=== PATIENT | male | born 1955 | race Caucasian/White ===

== ENCOUNTER 2019-08-03 04:38 | Inpatient (IN) | payer MEDICARE, OTHER ==
[2019-08-03] MEDS ORDERED: Hydromorphone 1 mg/ml Ampule IV ONE ×3 (04:45→06:39)
[2019-08-03] MEDS ORDERED: Sodium Chloride 0.9% 1000 ML 1,000 ML IV STA (04:45)
[2019-08-03] MEDS ORDERED: Zofran 4 MG/2 ML VIAL IV ONE (04:45)
[2019-08-03] MEDS ORDERED: Sodium Chloride 0.9% 1000 ML 1,000 ML ONE ×2 (05:04→07:41)
[2019-08-03] MEDS ORDERED: Hydromorphone 1 mg/ml Ampule ONE ×4 (05:04→07:41)
[2019-08-03] MEDS ORDERED: Zofran 4 MG/2 ML VIAL ONE (05:04)
[2019-08-03 05:06] LABS: Absolute Neutrophil Ct (ANC) 13.73 (1.4-6.9); BASOPHIL % 0.1 % (0.0-0.4); Basophil (Absolute #) 0.01 (0-0.4); Eosinophil % 0.1 % (0.00-5.0); Eosinophil (Absolute #) 0.01 (0-0.5); Hemoglobin 14.8 gm/dl (12.5-18.0); Lymphocytes % 6.9 % (24.0-44.0); Mean Cell Volume 90.3 fl (78-100); Mean Corpuscular Hemoglobin 30.4 pg (26-32); Mean Corpuscular Hgb Concent. 33.6 g/dl (32-36); Mean Platelet Volume 9.6 fl (7.5-11.0); Monocyte (Absolute #) 1.05 (0.0-1.3); Monocytes % 6.6 % (0.0-12.0); Neutrophil % 86.3 % (36.0-66.0); Platelet Count 219 K/mm3 (150-450); Red Blood Count 4.87 M/mm3 (4.1-5.6); Red Cell Distribution Width 13.9 % (11.5-14.0); White Blood Count 15.9 K/mm3 (4.0-10.5)
--- NOTE | 2019-08-03 05:12 | ERPHSYRPT ---
- History of Present Illness Time Seen by Provider: 08/03/19 04:55 Historian: patient Exam Limitations: no limitations Patient Subjective Stated Complaint: pt c/o abd pain/vomiting x4 times since yesterday at 1800. Pt denies diarrhea or fever. Triage Nursing Assessment: pt c/o lt lower abd pain, tender on palpation, vomiting. Abd soft with active bs x4 quad, tender on palpation. Pt denies any pain radiating to back, denies diarrhea. Physician History: Patient has nausea, vomiting and LLQ abdominal pain for the past 10 hours. Timing/Duration: hour(s) (10) Activities at Onset: none Quality: stabbing Abdominal Pain Onset Location: LLQ Pain Radiation: no radiation Severity of Pain-Max: severe Severity of Pain-Current: severe Modifying Factors: Improves With: nothing Associated Symptoms: nausea, vomiting (times four), No back, No chest pain, No diaphoresis, No diarrhea, No fever/chills, No fatigue, No headache, No heartburn , No loss of appetite, No neck pain, No rash, No shortness of breath, No syncope , No testicular pain, No weakness Previous symptoms: no prior history, no recent treatment Allergies/Adverse Reactions: No Known Drug Allergies Allergy (Unverified 08/03/19 04:56) Home Medications: Methadone HCl 5 mg PO HS 08/03/19 [History] Metoprolol Tartrate 25 mg [Lopressor 25MG Tab] 25 mg PO HS 08/03/19 [ History] Sertraline HCl 50 mg PO HS 08/03/19 [History] Tizanidine HCl 4 mg [Zanaflex 4 MG] 4 mg PO DAILY 08/03/19 [History] Zolpidem Tartrate 10 mg [Ambien 10 MG] 10 mg PO HS 08/03/19 [History] Hx Tetanus, Diphtheria Vaccination/Date Given: Yes Hx Influenza Vaccination/Date Given: Yes Hx Pneumococcal Vaccination/Date Given: Yes Immunizations Up to Date: Yes - Review of Systems Constitutional: No Fever, No Chills Eyes: No Eye Pain, No Vision Changes Ears, Nose, & Throat: No Mouth Swelling Respiratory: No Cough, No Dyspnea Cardiac: No Chest Pain, No Edema, No Syncope Abdominal/Gastrointestinal: Abdominal Pain, Nausea, Vomiting, No Diarrhea, No Hematemesis, No Hematochezia, No Melena Genitourinary Symptoms: No Dysuria, No Hematuria, No Flank Pain Musculoskeletal: No Back Pain, No Neck Pain Skin: No Rash Neurological: No Dizziness, No Focal Weakness, No Headache, No Parasthesia, No Sensory Changes Psychological: No Symptoms Endocrine: No Symptoms All Other Systems: Reviewed and Negative - Past Medical History Pertinent Past Medical History: Yes Neurological History: No Pertinent History ENT History: No Pertinent History Cardiac History: Other Respiratory History: No Pertinent History Endocrine Medical History: No Pertinent History Musculoskeletal History: Arthritis GI Medical History: No Pertinent History History: No Pertinent History Psycho-Social History: Anxiety, Depression Male Reproductive Disorders: No Pertinent History - Past Surgical History Past Surgical History: Yes Neuro Surgical History: No Pertinent History Cardiac: No Pertinent History Respiratory: No Pertinent History Gastrointestinal: No Pertinent History Genitourinary: No Pertinent History Musculoskeletal: Orthopedic Surgery, Other Male Surgical History: No Pertinent History Other Surgical History: elbow repaired, back surgeries with implant - Social History Smoking Status: Never smoker Exposure to second hand smoke: No Drug Use: none Patient Lives Alone: No - Nursing Vital Signs Nursing Vital Signs: Initial Vital Signs Temperature 98.1 F 08/03/19 04:43 Pulse Rate 72 08/03/19 04:43 Respiratory Rate 18 08/03/19 04:43 Blood Pressure 148/72 08/03/19 04:43 O2 Sat by Pulse Oximetry 98 08/03/19 04:43 Pain Scale Pain Intensity 10 - Physical Exam General Appearance: no apparent distress, alert Eye Exam: PERRL/EOMI, eyes nml inspection Ears, Nose, Throat Exam: normal ENT inspection, TMs normal, pharynx normal, moist mucous membranes Neck Exam: normal inspection, non-tender, supple, full range of motion, No meningismus, No Brudzinski, No Kernig's Respiratory Exam: normal breath sounds, lungs clear, airway intact, No respiratory distress, No diminished breath sounds, No accessory muscle use, No crackles/rales, No rhonchi, No wheezing Cardiovascular Exam: regular rate/rhythm, normal heart sounds, normal peripheral pulses, capillary refill <2 sec Gastrointestinal/Abdomen Exam: soft, normal bowel sounds, No tenderness, No distention, No mass, No guarding, No rebound Back Exam: normal inspection, normal range of motion, No CVA tenderness, No vertebral tenderness Extremity Exam: normal inspection, normal range of motion, pelvis stable Neurologic Exam: alert, oriented x 3, cooperative, 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 Smaller hernia with no signs of instruction or mucosal thickening. No evidence of appendicitis. No free air. No significant fluid collection. No abdominal aortic aneurysm. Spinal cord simulator is in place. No acute fracture. Could consider further evaluation with CT Urography to exclude an underlying obstructive urothelial lesion) Ordered Tests: Active Orders 24 hr Category Date Time Status Dressing Care DAILY Care 08/03/19 04:47 Active IV Insertion STAT Care 08/03/19 04:45 Active ABDOMEN AND PELVIS W/0 CONTRAS [CT] Stat Exams 08/03/19 04:45 Taken AMYLASE Stat Lab 08/03/19 04:50 Completed CBC W DIFF Stat Lab 08/03/19 04:50 Completed CMP Stat Lab 08/03/19 04:50 Completed LIPASE Stat Lab 08/03/19 04:50 Completed Lactic Acid Stat Lab 08/03/19 05:00 Results PROTIME WITH INR Stat Lab 08/03/19 04:50 Completed UA W/RFX UR CULTURE Stat Lab 08/03/19 04:45 Uncollected Medication Summary Discontinued Medications Generic Name Dose Route Start Last Admin Trade Name Freq PRN Reason Stop Dose Admin Hydromorphone HCl 1 mg 08/03/19 04:45 08/03/19 05:10 Hydromorphone 1 Mg/Ml Ampule IV 08/03/19 04:46 1 mg STAT ONE Administration Hydromorphone HCl Confirm 08/03/19 05:04 Hydromorphone 1 Mg/Ml Ampule Administered 08/03/19 05:05 Dose 1 mg .ROUTE .STK-MED ONE Hydromorphone HCl 1 mg 08/03/19 06:06 08/03/19 06:11 Hydromorphone 1 Mg/Ml Ampule IV 08/03/19 06:07 1 mg STAT ONE Administration Hydromorphone HCl Confirm 08/03/19 06:09 Hydromorphone 1 Mg/Ml Ampule Administered 08/03/19 06:10 Dose 1 mg .ROUTE .STK-MED ONE Hydromorphone HCl 1 mg 08/03/19 06:39 Hydromorphone 1 Mg/Ml Ampule IV 08/03/19 06:40 STAT ONE Sodium Chloride 1,000 mls @ 999 mls/hr 08/03/19 04:45 08/03/19 05:10 Sodium Chloride 0.9% 1000 Ml IV 08/03/19 05:45 999 mls/hr .Q1H1M STA Administration Sodium Chloride Confirm 08/03/19 05:04 Sodium Chloride 0.9% 1000 Ml Administered 08/03/19 05:05 Dose 1,000 mls @ ud .ROUTE .STK-MED ONE Ondansetron HCl 4 mg 08/03/19 04:45 08/03/19 05:11 Zofran 4 Mg/2 Ml Vial IV 08/03/19 04:46 4 mg STAT ONE Administration Ondansetron HCl Confirm 08/03/19 05:04 Zofran 4 Mg/2 Ml Vial Administered 08/03/19 05:05 Dose 4 mg .ROUTE .STK-MED ONE Lab/Rad Data: Laboratory Result Diagrams 08/03/19 04:50 08/03/19 04:50 Laboratory Results 08/03/19 08/03/19 08/03/19 Range/Units 05:00 04:50 04:50 WBC (4.0-10.5) K/mm3 RBC (4.1-5.6) M/mm3 Hgb (12.5-18.0) gm/dl Hct (42-50) % MCV (78-100) fl MCH (26-32) pg MCHC (32-36) g/dl RDW (11.5-14.0) % Plt Count (150-450) K/mm3 MPV (7.5-11.0) fl Gran % (36.0-66.0) % Eos # (Auto) (0-0.5) Absolute Lymphs (auto) (1.0-4.6) Absolute Monos (auto) (0.0-1.3) Lymphocytes % (24.0-44.0) % Monocytes % (0.0-12.0) % Eosinophils % (0.00-5.0) % Basophils % (0.0-0.4) % Absolute Granulocytes (1.4-6.9) Basophils # (0-0.4) PT 14.3 H (8.83-12.87) SECONDS INR 1.26 (0.8-3.0) Sodium 138 (137-145) mmol/L Potassium 4.3 (3.5-5.1) mmol/L Chloride 96 L (98-107) mmol/L Carbon Dioxide 31 H (22-30) mmol/L Anion Gap 15.3 H (5-15) MEQ/L BUN 24 H (9-20) mg/dL Creatinine 1.51 H (0.66-1.25) mg/dL Estimated GFR 49.5 ML/MIN Glucose 164 H (74-106) mg/dL Lactic Acid 2.0 (0.4-2.0) Calcium 10.1 (8.4-10.2) mg/dL Total Bilirubin 0.80 (0.2-1.3) mg/dL AST 36 (17-59) U/L ALT 31 (0-50) U/L Alkaline Phosphatase 87 (38-126) U/L Serum Total Protein 8.4 H (6.3-8.2) g/dL Albumin 5.0 (3.5-5.0) g/dL Amylase 129 H (30-110) U/L Lipase 124 (23-300) U/L 08/03/19 Range/Units 04:50 WBC 15.9 H (4.0-10.5) K/mm3 RBC 4.87 (4.1-5.6) M/mm3 Hgb 14.8 (12.5-18.0) gm/dl Hct 44.0 (42-50) % MCV 90.3 (78-100) fl MCH 30.4 (26-32) pg MCHC 33.6 (32-36) g/dl RDW 13.9 (11.5-14.0) % Plt Count 219 (150-450) K/mm3 MPV 9.6 (7.5-11.0) fl Gran % 86.3 H (36.0-66.0) % Eos # (Auto) 0.01 (0-0.5) Absolute Lymphs (auto) 1.10 (1.0-4.6) Absolute Monos (auto) 1.05 (0.0-1.3) Lymphocytes % 6.9 L (24.0-44.0) % Monocytes % 6.6 (0.0-12.0) % Eosinophils % 0.1 (0.00-5.0) % Basophils % 0.1 (0.0-0.4) % Absolute Granulocytes 13.73 H (1.4-6.9) Basophils # 0.01 (0-0.4) PT (8.83-12.87) SECONDS INR (0.8-3.0) Sodium (137-145) mmol/L Potassium (3.5-5.1) mmol/L Chloride (98-107) mmol/L Carbon Dioxide (22-30) mmol/L Anion Gap (5-15) MEQ/L BUN (9-20) mg/dL Creatinine (0.66-1.25) mg/dL Estimated GFR ML/MIN Glucose (74-106) mg/dL Lactic Acid (0.4-2.0) Calcium (8.4-10.2) mg/dL Total Bilirubin (0.2-1.3) mg/dL AST (17-59) U/L ALT (0-50) U/L Alkaline Phosphatase (38-126) U/L Serum Total Protein (6.3-8.2) g/dL Albumin (3.5-5.0) g/dL Amylase (30-110) U/L Lipase (23-300) U/L - Progress Progress: improved Progress Note: 08/03/19 06:38 Patient has two rounds of IV Dilaudid with some improvement of pain, but it has returned. Patient will be given 1mg of Dilaudid and consideration for admission for pain control Discussed with .: Mabel (@06:40, discussed the patient with Dr Castro, Hospitalist at [facility]. Dr Castro accepted the patient for observation.) Counseled pt/family regarding: lab results, diagnosis, need for follow-up, rad results - Departure Departure Disposition: Observation (to [facility] to Dr Castro) Clinical Impression: LLQ abdominal pain, Hydronephrosis of left kidney, Acute renal insufficiency Blister of back without infection Qualifiers: Encounter type: initial encounter Laterality: left Qualified Code(s): S20.422A - Blister (nonthermal) of left back wall of thorax, initial encounter Condition: Good Critical Care Time: No Referrals: MONTY MORGAN [Primary Care Provider] -
[2019-08-03 05:13] LABS: INR 1.26 (0.8-3.0); PROTIME 14.3 SECONDS (8.83-12.87)
[2019-08-03 05:17] LABS: ANION GAP 15.3 MEQ/L (5-15); BILIRUBIN,TOTAL 0.8 mg/dL (0.2-1.3); Calcium 10.1 mg/dL (8.4-10.2); Creatinine 1 1.51 mg/dL (0.66-1.25); Potassium 4.3 mmol/L (3.5-5.1); Total Protein 8.4 g/dL (6.3-8.2)
[2019-08-03] MEDS ORDERED: DILAUDID 2 MG INJECTION IV PRN (06:46)
[2019-08-03] MEDS: Sodium Chloride 0.9% 1000 ML 1,000 ML IV SCH ×4 (07:43→22:33)
--- NOTE | 2019-08-03 09:22 | HP ---
CHIEF COMPLAINT: Severe left lower quadrant abdominal pain. HISTORY OF PRESENT ILLNESS: The patient is a 64 year-old white male patient who presented to the emergency room having had pain since 1800 hours last evening. He reports he had a salad afterwards his abdomen became quite painful and reports that the pain was the worst he had in his life and he has implanted pain nerve stimulator and takes methadone from Dr. Vazquez for his back pain. The patient's evaluation included CT scan which showed hydronephrosis and stranding on the left ureteral system but no stone was noted. The patient denies any dysuria. He had no nausea or vomiting prior to this time. PAST MEDICAL/SURGICAL HISTORY: Significant for low back pain problems with a nerve stimulator implanted. HOME MEDICATIONS: Methadone 5 mg at night, metoprolol 25 mg at night, Sertraline 50 mg at night, Zanaflex 4 mg daily and Ambien 10 mg at night. ALLERGIES: NKDA. PHYSICAL EXAMINATION: His vital signs on admission showed temperature 98.1F, pulse 72, respiratory rate 18, blood pressure 148/72. O2 saturation 98%. HEENT: Normocephalic, atraumatic. Pupils equal round reactive to light. Extraocular movements intact. Oropharynx is pink and moist. NECK: Supple without lymphadenopathy, thyromegaly or JVD. CHEST: Clear to auscultation. HEART: Regular rate and rhythm. ABDOMEN: Soft, tender in the left upper quadrant. No palpable masses. EXTREMITIES: Without cyanosis, clubbing or edema. NEUROLOGIC: The patient is alert and oriented x3. When asked about his pain level he reports it as 8 out of 10 but my observation the patient appeared to be in distress whatsoever and he is ordering a full breakfast. LAB DATA AND TESTS: He had laboratory studies otherwise show international normalized ratio 1.26. Sugar 164, BUN 24, creatinine 1.51. Electrolytes were essentially normal. Liver enzymes were normal. Amylase was slightly elevated at 129. His white count is 15,900, hemoglobin 14.8, PLT count 219,000. The patient apparently recently been on doxycycline 100 mg b.i.d. which he recently finished for what apparently was upper respiratory tract infection problem. ASSESSMENT: A patient with left hydronephrosis, possible passed kidney stone. No obstructive tone was noted at this time. The patient has yet to give us a urine sample. We will check UA, culture and sensitivity for possibility of urinary tract infection and possible pyelonephritis. Otherwise the patient was given his methadone for pain control and he has been increased on his IV fluids to 200 cc/hour to help flush the kidneys. We may end up using antibiotic depending on what we see on the urine report.
--- NOTE | 2019-08-03 09:26 | XRAY ---
Indication: Left lower quadrant pain with nausea and vomiting. Multiple contiguous axial images obtained through the abdomen and pelvis without contrast as ordered. Comparison: August 06, 2009. Lung bases again demonstrates right base fibrosis/scarring and tiny right middle lobe calcified granuloma. No infiltrate or effusion. Heart is not enlarged. New small hiatal hernia. There is again left lower back spinal stimulator device with leads producing beam artifact. Noncontrasted stomach and bowel loops appear nonobstructed. Normal appendix. There is moderate fecal debris in the ascending and lesser degree transverse colon. No free fluid/air. Left kidney is now moderately hydronephrotic to the level of the UPJ without radiopaque calculus. Mild perinephric stranding consistent with obstructive uropathy but no perinephric fluid. Markedly distended urinary bladder, either outlet obstruction vs neurogenic bladder. Again mild diffuse fatty liver. Remaining liver, gallbladder, pancreas, spleen, adrenal glands, right kidney, both ureters, and bladder appear unremarkable for noncontrast exam. Osseous structures intact again with mild degenerative changes throughout the spine, worsened at the lumbosacral junction. Impression: 1. New hydronephrotic left kidney to the level of the UPJ with perinephric stranding. No radiopaque calculus. CT urogram or retrograde pyelogram may yield further information. 2. New small hiatal hernia and mild fecal stasis. 3. New markedly distended urinary bladder. Rule out outlet obstruction vs neurogenic bladder. 4. Again incidental fatty liver. Comment: Preliminary interpretation was made by C. No critical discrepancy.
[2019-08-03 09:58] LABS: Appearance CLEAR (CLEAR); Bacteria RARE /HPF (NEGATIVE); Bilirubin NEGATIVE (NEGATIVE); Blood SMALL Ery/ul (0-5); Glucose NEGATIVE (NEGATIVE); Ketones NEGATIVE (NEGATIVE); Leukocyte Esterase NEGATIVE (NEGATIVE); Mucus SLIGHT /HPF (NEGATIVE); Nitrite NEGATIVE (NEGATIVE); Protein,Urine Dip NEGATIVE (Negative); Specific Gravity 1.015 (1.005-1.025); Urobilinogen NEGATIVE mg/dL (0-1); WBC 0-2 /HPF (0-5)
[2019-08-03] MEDS: Pepcid 20 MG PO SCH ×2 (10:07→22:23)
[2019-08-03] MEDS: Flomax 0.4 MG PO SCH (10:07)
[2019-08-03] MEDS: ENOXAPARIN SODIUM SQ SCH (10:07)
[2019-08-03] MEDS ORDERED: DOLOPHINE 10MG Tablet PO ONE (11:00)
[2019-08-03] MEDS: Zofran 4 MG/2 ML VIAL IV PRN ×2 (13:45→19:53)
[2019-08-03] MEDS: Phenergan 25 MG INJ IV PRN ×2 (16:41→22:23)
[2019-08-03 16:44] LABS: Calcium 8.6 mg/dL (8.4-10.2); Creatinine 1 1.59 mg/dL (0.66-1.25); Potassium 4.1 mmol/L (3.5-5.1)
[2019-08-03] MEDS ORDERED: METHADONE HCL 5 MG PO SCH (22:00)
[2019-08-03] MEDS: Lopressor 25MG Tab PO SCH (22:22)
[2019-08-03] MEDS: DOLOPHINE 10MG Tablet PO SCH (22:22)
[2019-08-03] MEDS: ZOLOFT 50 MG TABLET PO SCH (22:22)
[2019-08-03] MEDS: Zanaflex 4 MG PO SCH (22:23)
[2019-08-03] MEDS: Ambien 10 MG PO SCH (22:23)
[2019-08-04] MEDS: Phenergan 25 MG INJ IV PRN (04:17)
[2019-08-04] MEDS: Pepcid 20 MG PO SCH ×2 (09:46→21:06)
[2019-08-04] MEDS: Flomax 0.4 MG PO SCH (09:46)
[2019-08-04] MEDS: DILAUDID 2 MG INJECTION IV PRN ×3 (09:47→21:01)
[2019-08-04] MEDS: Sodium Chloride 0.9% 1000 ML 1,000 ML IV SCH ×3 (09:47→21:15)
[2019-08-04] MEDS: ENOXAPARIN SODIUM SQ SCH (09:47)
[2019-08-04 10:08] LABS: ALBUMIN 3.6 g/dL (3.5-5.0); ANION GAP 9.3 MEQ/L (5-15); BILIRUBIN,TOTAL 0.7 mg/dL (0.2-1.3); Calcium 8.2 mg/dL (8.4-10.2); Creatinine 1 1.99 mg/dL (0.66-1.25); Potassium 4.6 mmol/L (3.5-5.1); Total Protein 6.3 g/dL (6.3-8.2)
[2019-08-04] MEDS: Zofran 4 MG/2 ML VIAL IV PRN (14:54)
[2019-08-04] MEDS: TYLENOL 325 MG PO PRN (18:04)
[2019-08-04] MEDS: ZOLOFT 50 MG TABLET PO SCH (21:05)
[2019-08-04] MEDS: Zanaflex 4 MG PO SCH (21:06)
[2019-08-04] MEDS: Lopressor 25MG Tab PO SCH (21:06)
[2019-08-04] MEDS: DOLOPHINE 10MG Tablet PO SCH (21:06)
[2019-08-04] MEDS: Ambien 10 MG PO SCH (21:06)
[2019-08-05] MEDS: Sodium Chloride 0.9% 1000 ML 1,000 ML IV SCH ×3 (03:00→07:43)
[2019-08-05] MEDS: DILAUDID 2 MG INJECTION IV PRN ×5 (04:43→17:38)
[2019-08-05 05:34] LABS: Hematocrit 37.3 % (42-50); Mean Cell Volume 94.7 fl (78-100); Mean Corpuscular Hemoglobin 30.5 pg (26-32); Mean Corpuscular Hgb Concent. 32.2 g/dl (32-36); Mean Platelet Volume 9.9 fl (7.5-11.0); Platelet Count 154 K/mm3 (150-450); Red Blood Count 3.94 M/mm3 (4.1-5.6); Red Cell Distribution Width 14.5 % (11.5-14.0); White Blood Count 12.6 K/mm3 (4.0-10.5)
[2019-08-05 05:40] LABS: ALBUMIN 3.5 g/dL (3.5-5.0); ANION GAP 11.3 MEQ/L (5-15); BILIRUBIN,TOTAL 1.4 mg/dL (0.2-1.3); Calcium 7.8 mg/dL (8.4-10.2); Creatinine 1 1.67 mg/dL (0.66-1.25); Potassium 4.1 mmol/L (3.5-5.1); Total Protein 6.4 g/dL (6.3-8.2)
[2019-08-05] MEDS ORDERED: Cardizem IV 50 MG/10 ML IV ONE (06:59)
[2019-08-05] MEDS ORDERED: CARDIZEM DRIP 100 MG/100 ML D5W 100 ML IV PRN (07:05)
[2019-08-05 07:07] LABS: A-aADO2 206; ABG POTASSIUM 4.5 (3.5-5.1); ABG SITE lr; ARTERIAL BLD GAS O2 SATURATION 85.7 % (95-100); ARTERIAL BLOOD GAS BASE EXCESS -2.2 (-2.0-2.0); ARTERIAL BLOOD GAS FIO2 44 %; ARTERIAL BLOOD GAS PCO2 44 mmHg (35-45); ARTERIAL BLOOD GAS PO2 53 mmHg (75-100); ARTERIAL BLOOD GAS pH 7.34 (7.35-7.45); CARBOXYHEMOGLOBIN 1.4 % THgb (0.0-6.9); HCO3- 23.7 (22-28); HGB O2 SAT 83.9 g/dF (94-100); Methhemoglobin 0.8 % (1.4-1.5)
[2019-08-05 07:08] LABS: ALLEN TEST OK? yes
--- NOTE | 2019-08-05 08:37 | XRAY ---
Indication: Arrhythmia. Comparison: None Portable chest demonstrates cardiomegaly, mild pulmonary edema, and small bibasilar effusions right greater than left favoring cardiac decompensation. Superimposed pneumonia not completely excluded. Bony thorax intact with spinal stimulator lead terminating T7.
[2019-08-05] MEDS ORDERED: CEPACOL SORE THROAT LOZENGE PO PRN (09:00)
[2019-08-05] MEDS: Flomax 0.4 MG PO SCH (09:12)
[2019-08-05] MEDS: Pepcid 20 MG PO SCH (09:12)
[2019-08-05] MEDS: ENOXAPARIN SODIUM SQ SCH (09:12)
--- NOTE | 2019-08-05 09:22 | XRAY ---
Indication: Left lower quadrant/flank pain. Multiple contiguous axial images obtained through the abdomen and pelvis without contrast using renal stone protocol. Comparison: August 03, 2019. Lung bases demonstrates new bibasilar consolidating airspace opacities and small bibasilar effusions. Rule out aspiration pneumonia. Heart is not enlarged. Stable small hiatal hernia. Again no radiopaque calculus in either system. Left kidney demonstrates worsening marked hydronephrosis and increasing perinephric stranding with new tiny perinephric fluid worrisome for high-grade UPJ obstruction. Left mid to proximal ureter demonstrates new stranding favoring ureteritis. Urinary bladder again appears markedly distended, either outlet obstruction versus neurogenic bladder. New tiny perihepatic, left colic gutter, and bilateral lower quadrant free fluid. No walled off fluid collection or free air. Noncontrasted stomach and bowel loops remain nonobstructed with mild fecal debris predominantly in the right hemicolon. Normal appendix. Stable fatty hepatomegaly, minimal aortoiliac calcifications, and left lower back spinal stimulator device with leads. Remaining liver, gallbladder, pancreas, spleen, adrenal glands, right kidney, right ureter, and bladder appear unremarkable for noncontrast exam. Impression: 1. Again high-grade left UPJ obstruction with marked worsening left hydronephrosis, increasing perinephric stranding, and new perinephric fluid. New left ureteritis. No radiopaque calculus in either system. 2. New perihepatic and bilateral lower quadrant free fluid. 3. New consolidating airspace opacities and small effusions in both lung bases. Rule out aspiration pneumonia. 4. Stable markedly distended urinary bladder concerning for outlet objection versus neurogenic bladder. 5. Stable small hiatal hernia and fatty hepatomegaly.
[2019-08-05] MEDS: TYLENOL 325 MG PO PRN (10:10)
[2019-08-05 11:19] LABS: Appearance CLEAR (CLEAR); Bilirubin NEGATIVE (NEGATIVE); Blood NEGATIVE Ery/ul (0-5); Glucose NEGATIVE (NEGATIVE); Ketones TRACE (NEGATIVE); Leukocyte Esterase NEGATIVE (NEGATIVE); Mucus SLIGHT /HPF (NEGATIVE); Nitrite NEGATIVE (NEGATIVE); Protein,Urine Dip NEGATIVE (Negative); Specific Gravity 1.017 (1.005-1.025); Urobilinogen NEGATIVE mg/dL (0-1)
[2019-08-05] MEDS ORDERED: Lasix 20 MG/2 ML IV ONE (11:20)
[2019-08-05] MEDS: Levofloxacin 500MG/100ML D5W 500 MG/100 ML BAG IV SCH (11:22)
[2019-08-05] MEDS: Lopressor 25MG Tab PO SCH (15:11)
[2019-08-05] MEDS: Zofran 4 MG/2 ML VIAL IV PRN (17:38)
[2019-08-06 06:50] LABS: Risk Ratio 3.5
[2019-08-06] MEDS: ENOXAPARIN SODIUM SQ SCH (08:11)
[2019-08-06] MEDS: Levofloxacin 500MG/100ML D5W 500 MG/100 ML BAG IV SCH (08:12)
[2019-08-06] MEDS: Zofran 4 MG/2 ML VIAL IV PRN ×2 (08:12→16:04)
[2019-08-06] MEDS: Cardizem CD 180 MG PO SCH (08:12)
[2019-08-06] MEDS: NORCO 5/325 MG PO PRN ×3 (08:12→16:43)
[2019-08-06] MEDS: Lopressor 25MG Tab PO SCH ×2 (08:12→21:41)
[2019-08-06] MEDS: ECOTRIN 81 MG PO SCH (08:12)
[2019-08-06] MEDS: Flomax 0.4 MG PO SCH (08:14)
[2019-08-06 08:15] LABS: Hematocrit 36.1 % (42-50); Hemoglobin 11.5 gm/dl (12.5-18.0); Mean Cell Volume 94.8 fl (78-100); Mean Corpuscular Hemoglobin 30.2 pg (26-32); Mean Corpuscular Hgb Concent. 31.9 g/dl (32-36); Mean Platelet Volume 10.7 fl (7.5-11.0); Platelet Count 157 K/mm3 (150-450); Red Blood Count 3.81 M/mm3 (4.1-5.6); Red Cell Distribution Width 14.3 % (11.5-14.0); White Blood Count 11.6 K/mm3 (4.0-10.5)
[2019-08-06] MEDS: Pepcid 20 MG PO SCH ×2 (08:16→21:42)
[2019-08-06 08:26] LABS: ALBUMIN 3.4 g/dL (3.5-5.0); ANION GAP 11.8 MEQ/L (5-15); BILIRUBIN,TOTAL 0.9 mg/dL (0.2-1.3); Calcium 7.6 mg/dL (8.4-10.2); Creatinine 1 1.43 mg/dL (0.66-1.25); Potassium 4.1 mmol/L (3.5-5.1); Total Protein 6.3 g/dL (6.3-8.2)
[2019-08-06 09:13] LABS: INFLUENZA A NEGATIVE (NEGATIVE); INFLUENZA B NEGATIVE (NEGATIVE); RESPIRATORY SYNCTIAL VIRUS NEGATIVE (Negative)
[2019-08-06] MEDS ORDERED: Lasix 40 MG/4 ML IV ONE (10:00)
[2019-08-06] MEDS ORDERED: Lasix 20 MG/2 ML IV ONE (10:42)
[2019-08-06] MEDS: TYLENOL 325 MG PO PRN (20:38)
[2019-08-06] MEDS: DOLOPHINE 10MG Tablet PO SCH (21:41)
[2019-08-06] MEDS: Zanaflex 4 MG PO SCH (21:42)
[2019-08-06] MEDS: ZOLOFT 50 MG TABLET PO SCH (21:42)
[2019-08-06] MEDS: Ambien 10 MG PO SCH (21:43)
[2019-08-07 04:59] LABS: Hematocrit 37.7 % (42-50); Hemoglobin 12.3 gm/dl (12.5-18.0); Mean Cell Volume 93.1 fl (78-100); Mean Corpuscular Hemoglobin 30.4 pg (26-32); Mean Corpuscular Hgb Concent. 32.6 g/dl (32-36); Mean Platelet Volume 10.4 fl (7.5-11.0); Platelet Count 162 K/mm3 (150-450); Red Blood Count 4.05 M/mm3 (4.1-5.6); White Blood Count 9.5 K/mm3 (4.0-10.5)
[2019-08-07 05:12] LABS: ALBUMIN 3.4 g/dL (3.5-5.0); ALKALINE PHOSPHATASE 88 U/L (38-126); ANION GAP 9.6 MEQ/L (5-15); BLOOD UREA NITROGEN 25 mg/dL (9-20); CHLORIDE 100 mmol/L (98-107); Calcium 8.2 mg/dL (8.4-10.2); Carbon Dioxide 32 mmol/L (22-30); Creatinine 1 1.41 mg/dL (0.66-1.25); Glucose 108 mg/dL (74-106); Potassium 3.8 mmol/L (3.5-5.1); SGOT/AST 49 U/L (17-59); SGPT/ALT 90 U/L (0-50); SODIUM 138 mmol/L (137-145); Total Protein 6.4 g/dL (6.3-8.2)
[2019-08-07 05:14] LABS: TROPONIN < 0.012 ng/mL (0.000-0.034)
[2019-08-07 05:26] LABS: Eosinophil 1 % (0.00-3.0); Lymphocytes 11 % (24-44); Monocyte 7 % (0.0-12.0); Neutrophils 81 % (36.-66.); Platelet Estimate NORMAL (NORMAL); Polychromasia RARE; Total Cells Counted 100
[2019-08-07] MEDS: TYLENOL 325 MG PO PRN (08:07)
[2019-08-07 08:35] VITALS: BP 133/65; PULSE 84; O2SAT 90
--- NOTE | 2019-08-07 09:47 | PCM.DS ---
Discharge Summary Date of Admission: 08/05/19 07:49 Date of Discharge: 08/07/2019 Admitting Physician: FLORINA BRADEN Consults: Consults on Case 08/05/19 08:55 Consult Cardiology ROUTINE Primary Care Provider: MONTY MORGAN Allergies Allergies No Known Drug Allergies Allergy (Unverified 08/03/19 04:56) Hospital Summary - Hospital Course Hospital Course: Pt. admitted for suspected recently passed kidney stone noting hydronephrosis, no significant blood in urine. Pt. was aggressively hydrated to improve kidney flow and flush kidneys. Pt. had repeat CT of abdomen on showing worsening hydronephrosis on the left, fluid in the gutters, worsening of perinephric stranding and perihepatic fluid, and new infiltrate in the lungs with small bilateral effusion. Baxter placed to for bladder distension/outlet obstruction with good results as well as iv abx. Pt. yesterday began having increasing sob and started requiring sisi at 30% to maintain oxygen levels above 90%, this am without oxygen noted to have saturation of 84% and slow to respond to improve to 93-96% with sisi mask. WBC, vitals and labs remain stable. It is felt this am that the patient will have a prolonged hospital course with out stent placement in the left uvj for his uncertain etiology of this high grade obstruction. Pt. will be transferred to [facility] for stent placement to shorten his hospital course. Pt. voices understanding of reasons and plan and agrees with questions answered at the bedside. - Vitals & Intake/Output Vital Signs: Vital Signs Temperature 98.8 F 08/07/19 08:00 Pulse Rate 84 08/07/19 08:00 Respiratory Rate 14 08/07/19 08:00 Blood Pressure 133/65 08/07/19 08:00 O2 Sat by Pulse Oximetry 90 L 08/07/19 08:00 Oxygen-Last Documented O2 Percentage 4 Liters = 36% Intake & Output: Intake & Output 08/04/19 08/05/19 08/06/19 08/07/19 11:59 11:59 11:59 11:59 Intake Total 5725 5088 3232 1500 Output Total 300 2050 1300 4950 Balance 5425 3038 1932 -3450 Weight 102.7 kg - Lab Result Diagrams: 08/07/19 04:56 08/07/19 04:56 Lab Results-Last 24 Hrs: Lab Results-Last 24 Hours 08/07/19 08/07/19 Range/Units 04:56 04:56 WBC 9.5 (4.0-10.5) K/mm3 RBC 4.05 L (4.1-5.6) M/mm3 Hgb 12.3 L (12.5-18.0) gm/dl Hct 37.7 L (42-50) % MCV 93.1 (78-100) fl MCH 30.4 (26-32) pg MCHC 32.6 (32-36) g/dl RDW 14.0 (11.5-14.0) % Plt Count 162 (150-450) K/mm3 MPV 10.4 (7.5-11.0) fl Segmented Neutrophils 81 H (36.-66.) % Lymphocytes (Manual) 11 L (24-44) % Monocytes (Manual) 7 (0.0-12.0) % Eosinophils (Manual) 1 (0.00-3.0) % Platelet Estimate NORMAL (NORMAL) RBC Morphology ABNORMAL Polychromasia RARE Sodium 138 (137-145) mmol/L Potassium 3.8 (3.5-5.1) mmol/L Chloride 100 (98-107) mmol/L Carbon Dioxide 32 H (22-30) mmol/L Anion Gap 9.6 (5-15) MEQ/L BUN 25 H (9-20) mg/dL Creatinine 1.41 H (0.66-1.25) mg/dL Estimated GFR 53.6 ML/MIN Glucose 108 H (74-106) mg/dL Calcium 8.2 L (8.4-10.2) mg/dL Total Bilirubin 0.90 (0.2-1.3) mg/dL AST 49 (17-59) U/L ALT 90 H (0-50) U/L Alkaline Phosphatase 88 (38-126) U/L Troponin I < 0.012 (0.000-0.034) ng/mL Serum Total Protein 6.4 (6.3-8.2) g/dL Albumin 3.4 L (3.5-5.0) g/dL Micro Results-Entire Visit: Microbiology 08/05/19 11:10 Blood Culture - Preliminary Blood NO GROWTH TO DATE 08/05/19 11:05 Blood Culture - Preliminary Blood NO GROWTH TO DATE 08/05/19 11:20 Urine Culture - Final Urine, Indwelling Catheter NO GROWTH - Radiology Exams Ordered Rad Exams-Entire Visit: Radiology Procedures Category Date Time Status ECHO W/2D AND DOPPLER [US] Routine Exams 08/06/19 08:41 Taken - Procedures and Test Procedures and Tests throughout Hospitalization: Therapy Orders & Screens 08/03/19 06:44 EKG Comment: 08/05/19 07:29 Oxygen Oxymask LPM 15% Comment: Diagnosis: LLQ PAIN 08/05/19 07:30 EKG STAT Comment: Diagnosis: LLQ PAIN Discharge Exam General Appearance: no apparent distress, alert Neurologic Exam: alert, cooperative Eye Exam: EOMI Ears, Nose, Throat Exam: normal ENT inspection Neck Exam: normal inspection, non-tender Respiratory Exam: chest tenderness, diminished breath sounds Cardiovascular Exam: regular rate/rhythm, normal heart sounds, normal peripheral pulses Gastrointestinal/Abdomen Exam: soft, normal bowel sounds, No tenderness, No distention, No mass, No guarding Male Genitalia Exam: deferred Rectal Exam: deferred Extremity Exam: normal inspection Skin Exam: normal color, warm, dry, rash Final Diagnosis/Problem List - Final Discharge Diagnosis/Problem (1) Acute renal insufficiency Current Visit: Yes Status: Acute Code(s): N28.9 - DISORDER OF KIDNEY AND URETER, UNSPECIFIED (2) Hydronephrosis of left kidney Current Visit: Yes Status: Acute Code(s): N13.30 - UNSPECIFIED HYDRONEPHROSIS (3) LLQ abdominal pain Current Visit: Yes Status: Acute Code(s): R10.32 - LEFT LOWER QUADRANT PAIN - Discharge Discharge Date: 08/07/19 [facility] Condition: Stable Prescriptions: No Action Zolpidem Tartrate 10 mg [Ambien 10 MG] 10 mg PO HS Tizanidine HCl 4 mg [Zanaflex 4 MG] 4 mg PO HS Sertraline HCl 50 mg PO HS Metoprolol Tartrate 25 mg [Lopressor 25MG Tab] 25 mg PO HS Methadone HCl 5 mg PO HS Follow up with: CONRAD GUTHRIE [ACTIVE STAFF] - 1 Week
[2019-08-07] MEDS: Flomax 0.4 MG PO SCH (09:52)
[2019-08-07] MEDS: Lopressor 25MG Tab PO SCH (09:52)
[2019-08-07] MEDS: ECOTRIN 81 MG PO SCH (09:52)
[2019-08-07] MEDS: ENOXAPARIN SODIUM SQ SCH (09:52)
[2019-08-07] MEDS: Cardizem CD 180 MG PO SCH (09:52)
[2019-08-07] MEDS: Pepcid 20 MG PO SCH (09:52)
--- NOTE | 2019-08-09 10:21 | ECHO ---
DATE OF PROCEDURE: 08/06/2019 CLINICAL INFORMATION: Supraventricular tachycardia. The M-mode 2D, and Doppler echocardiogram including color flow Doppler shows the left ventricle is normal in size at 4.3 cm. There is no thrombus present. The septal wall thickness is normal at 0.7 cm. The left ventricular posterior wall thickness is normal at 1.1 cm. There is normal contractility of the left ventricle with the ejection fraction calculated at 61%. The right ventricle is grossly normal. The left atrium is normal with a dimension of 3.8 cm. The interatrial septum is intact. The right atrium is normal. The aortic valve opens well. There is no aortic regurgitation present. The mitral valve is normal. There is mild to moderate tricuspid regurgitation. The peak gradient across the tricuspid valve is 33 mm of Mercury. The pulmonic valve is not well visualized. The aortic root is normal at 2.9 cm. There is no pericardial effusion present. IMPRESSION: 1) NORMAL CONTRACTILITY OF THE LEFT VENTRICLE. 2) MILD TO MODERATE TRICUSPID REGURGITATION. 3) MILD PULMONARY HYPERTENSION.
== END 2019-08-07 10:15 | disposition short-term general hospital (02) | DRG 699 ==
LOC: ED 04:38 → MED SURG 08:01 → ICU 08-05 07:17 → OBSVTOIN 08-05 07:49
PROVIDERS: ADMIT Family Medicine; ATTEND Family Medicine
DX: N28.9 Disorder of kidney and ureter, unspecified (principal); I47.1 Supraventricular tachycardia; J90 Pleural effusion, not elsewhere classified; N13.30 Unspecified hydronephrosis; E66.9 Obesity, unspecified; R10.32 Left lower quadrant pain; R51 Headache; R33.9 Retention of urine, unspecified; K59.00 Constipation, unspecified; S20.422A Blister (nonthermal) of left back wall of thorax, initial encounter; I25.2 Old myocardial infarction; Z96.82 Presence of neurostimulator; Z79.899 Other long term (current) drug therapy
CPT/HCPCS: 36000; 36415; 36600; 71045; 74176; 80048; 80053; 80061; 81001; 82150; 82375; 82803; 83605; 83690; 83721; 84443; 84484; 85025; 85027; 85610; 87040; 87086; 87631; 93005; 93268; 93306; 96360; 96374; 96375; 96376; 99285; G0378; Q3014; J1170; J1650; J1940; J1956; J2405; J2550; A9270-GY